=== PATIENT | female | born 1990 | race Caucasian/White ===

== ENCOUNTER 2016-09-09 12:19 | Emergency (ER) | payer OTHER ==
[2016-09-09 12:26] VITALS: BP 138/87
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
== END 2016-09-09 13:31 | disposition home or self-care (01) ==
LOC: ER 12:19
DX: S50.812A Abrasion of left forearm, initial encounter (principal); V43.52XA Car driver injured in collision with other type car in traffic accident, initial encounter; W22.11XA Striking against or struck by driver side automobile airbag, initial encounter; M79.632 Pain in left forearm; M25.511 Pain in right shoulder; M54.9 Dorsalgia, unspecified
CPT/HCPCS: 99283